=== PATIENT | male | born 1995 | race Caucasian/White ===

== ENCOUNTER → 2020-05-24 11:47 | Outpatient (BNVA) | payer OTHER, SELFPAY | PROVIDERS: Family Provider Family Medicine; Visit Provider Nurse Practitioner Family | DX: Z11.59 Encounter for screening for other viral diseases (principal); J06.9 Acute upper respiratory infection, unspecified | CPT/HCPCS: 87635 ==

== ENCOUNTER 2020-08-05 19:58 | Emergency (ER) | payer OTHER, SELFPAY ==
[2020-08-05 20:14] VITALS: BP 157/135; PULSE 90; RESP 14; TEMP 36.6; O2SAT 97; BMI 39.5
--- NOTE | 2020-08-05 20:49 | ED_ITS ---
HPI - COVID General: Chief Complaint: COVID symptoms Stated Complaint: covid symptoms,cough,nausea,vomiting,sob Time Seen by Provider: 08/05/20 20:10 Triage information: Has fever, cough or shortness of breath . Exposure to COVID + person last 14 days History of Present Illness: HPI Narrative: The patient is a 25-year-old male who comes to the ER complaining of nausea and vomiting for the past day. He says he is unable to keep anything down. He says it started with chills last night and has a sore throat from the vomiting. Denies eating anything bad. Denies diarrhea. He denies coughing to me. No sick contacts. COVID 19 common symptoms: positive chills, fatigue, headache(s), throat pain, nausea and vomiting; negative non-productive cough, productive cough or dyspnea COVID 19 other sytmptoms: negative chest pain COVID Results: SARS-CoV-2 Antigen (Rapid) Negative (Negative) 08/05/20 20:50 08/05/20 SARS-CoV-2 RNA (RT-PCR) Not detected (NOT DETECTED) 05/24/20 11:47 05/24/20 Review of Systems General: Reports: 10 or more systems reviewed and unremarkable except in HPI and below Const: Reports: chills and fatigue Eyes: Denies: change in vision, blurry vision or eye redness ENMT: Reports: throat pain Card: Denies: chest pain, palpitations, irregular heart rhythm, edema, dyspnea on exertion or orthopnea Resp: Denies: dyspnea, productive cough or non-productive cough GI: Reports: nausea and vomiting; Denies: abdominal pain : Denies: flank pain, urinary frequency or urinary urgency Musc: Denies: neck pain, back pain, extremity pain, joint pain, joint redness, limited range of motion or muscle weakness Skin/Breast: Denies: rash, pruritus, erythema, skin pain or skin tenderness Neuro: Reports: headache(s) Psych: Denies: anxiety or depression Endo: Denies: polyuria All/Imm: Denies: urticaria, throat swelling or tongue swelling Physical Exam Const: COMMON NORMALS: no acute distress, average body habitus, patient oriented x3, no limitations, healthy appearing, alert and well nourished GENERAL APPEARANCE: cooperative, comfortable, well kempt and well developed ORIENTATION/CONSCIOUSNESS: Yes awake, Yes oriented to person, Yes oriented to place and Yes oriented to time HENMT: COMMON NORMALS: normocephalic, external ears normal and Normal external nose present HEAD & SCALP: normal to inspection and normocephalic NOSE: Normal external nose present EXTERNAL EAR: Yes external ears normal MOUTH: Normal oral and palatal mucosa present THROAT: posterior oropharynx normal Eye: COMMON NORMALS: Equal, round and reactive pupils present and EOMs intact bilaterally GENERAL EYE: appearance normal, both eyes and all related structu res PUPIL: Yes Equal, round and reactive pupils present Neck/C-Spine: COMMON NORMALS: full ROM, no lymphadenopathy, no meningeal signs and no JVD GENERAL: Yes normal visual inspection Lymph: LYMPHATIC: no lymphadenopathy noted Chest: COMMONS NORMALS: normal inspection of the chest and normal palpation of entire chest wall Resp: COMMON NORMALS: normal respiratory effort, No retractions, No use of accessory muscles, clear to auscultation bilaterally and percussion normal EFFORT & INSPECTION: Yes able to speak in complete sentences AUSCULTATION: clear to auscultation bilaterally PERCUSSION: percussion normal Cardio: COMMON NORMALS: no JVD, regular rate, regular rhythm, S1 normal heart sound present, S2 normal heart sound present and Peripheral pulses 2+ throughout RATE: regular rate RHYTHM: regular rhythm HEART SOUNDS: S1 normal heart sound present and S2 normal heart sound present PERIPHERAL PULSES: Peripheral pulses 2+ throughout GI: COMMON NORMALS: Normal to inspection, nondistended, normoactive bowel sounds present, Soft to palpation, non-tender and no masses INSPECTION: Yes normal to inspection PALPATION: Yes Soft to palpation : COMMON NORMALS: Yes no CVA tenderness BLADDER/KIDNEY EXAM: Yes no CVA tenderness Back/Pelvis: COMMON NORMALS: no CVA tenderness, thoracic and lumbar spine normal to inspection, no thoracic nor lumbar tenderness and thoraco-lumbar ROM normal Extremity: COMMON NORMALS: normal to inspection, full ROM, capillary refill normal, no joint enlargement and no pedal edema GENERAL: Yes normal exam except as noted Neuro: COMMON NORMALS: patient oriented x3, CN's II-XII intact bilaterally, moves all extremities, no focal motor deficits, no sensory deficits noted and gait normal SENSORIUM/ORIENTATION: Yes alert, Yes oriented to person, Yes oriented to place and Yes oriented to time MENINGEAL SIGNS: Yes no meningeal signs Psych: COMMON NORMALS: mental status grossly normal, Normal thought process present, cooperative, normal affect and speech normal APPEARANCE: Yes well kempt ATTITUDE: Yes calm SPEECH: Yes normal speech THOUGHT PROCESS: Normal thought process present Skin: COMMON NORMALS: no rashes or lesions noted GENERAL SKIN EXAM: no rashes or lesions noted Course Vital Signs: Vital signs: Vital Signs Temperature 97.8 F 08/05/20 20:14 Pulse Rate 76 08/06/20 00:10 Respiratory Rate 18 08/06/20 00:10 Blood Pressure 155/92 08/06/20 00:10 Pulse Oximetry 98 08/06/20 00:10 MDM - COVID MDM Narrative: Medical decision making narrative: The patient came to the ER with symptoms of nausea and vomiting. He was given IV fluids, Zofran, which helped his symptoms and he was discharged. CT abdomen pelvis was negative. He has chronic hepatitis C which is why his liver enzymes are elevated. Follow-up with primary care physician in a couple days to monitor improvement and return to the ER with worsening symptoms. Continue to follow-up with GI for the hepatitis as regularly scheduled Lab Data: Labs: Lab Results 08/05/20 08/05/20 08/05/20 Range/Units 20:50 20:50 20:50 WBC 7.9 (4.0-10.0) 10^3/ uL RBC 5.77 H (4.1-5.3) 10^6/u L Hgb 17.0 H (11.7-16.6) g/dL Hct 51.6 (42.0-52.0) % MCV 89.4 (80-94) fL MCH 29.5 (28.0-34.0) pg MCHC 32.9 (30.0-36.0) g/dL RDW 13.6 (12.1-15.1) % Plt Count 273 (130-400) 10^3/c mm MPV 10.1 (7.4-10.4) fL Neut % (Auto) 53.5 % Lymph % (Auto) 39.8 % [place] % (Auto) 4.4 % Eos % (Auto) 1.5 % Baso % (Auto) 0.5 % Neut # (Auto) 4.21 (1.8-7.7) 10^3/u L Lymph # (Auto) 3.1 (0.8-4.8) 10^3/u L [place] # (Auto) 0.4 (0.2-0.9) 10^3/u L Eos # (Auto) 0.1 (0.0-0.8) 10^3/u L Baso # (Auto) 0.0 (0.0-0.1) 10^3/u L Nucleated RBC % (a uto) 0 % Nucleated RBCs # 0.0 /100WBC Sodium Cancelled Potassium Cancelled Chloride Cancelled Carbon Dioxide Cancelled Anion Gap Cancelled BUN Cancelled Creatinine Cancelled GFR Calculation Cancelled Glucose Cancelled Calculated Osmolal ity Cancelled Calcium Cancelled Total Bilirubin Cancelled AST Cancelled ALT Cancelled Alkaline Phosphata se Cancelled Total Protein Cancelled Albumin Cancelled Globulin Cancelled Lipase Cancelled Ethyl Alcohol Cancelled Hepatitis A IgM Ab (Nonreactive) Hep Bs Antigen (Nonreactive) Hep B Core IgM Ab (Nonreactive) Hepatitis C Antibo dy (Nonreactive) SARS-CoV-2 Ag (Rap id) Negative (Negative) 08/05/20 08/05/20 Range/Units 21:22 21:22 WBC (4.0-10.0) 10^3/ uL RBC (4.1-5.3) 10^6/u L Hgb (11.7-16.6) g/dL Hct (42.0-52.0) % MCV (80-94) fL MCH (28.0-34.0) pg MCHC (30.0-36.0) g/dL RDW (12.1-15.1) % Plt Count (130-400) 10^3/c mm MPV (7.4-10.4) fL Neut % (Auto) % Lymph % (Auto) % [place] % (Auto) % Eos % (Auto) % Baso % (Auto) % Neut # (Auto) (1.8-7.7) 10^3/u L Lymph # (Auto) (0.8-4.8) 10^3/u L [place] # (Auto) (0.2-0.9) 10^3/u L Eos # (Auto) (0.0-0.8) 10^3/u L Baso # (Auto) (0.0-0.1) 10^3/u L Nucleated RBC % (a uto) % Nucleated RBCs # /100WBC Sodium 139 Potassium 4.3 Chloride 104 Carbon Dioxide 26 Anion Gap 13.3 BUN 11 Creatinine 0.5 L GFR Calculation 201.0 H Glucose 89 Calculated Osmolal ity 287 Calcium 9.3 Total Bilirubin 0.8 AST 87 H ALT 94 H Alkaline Phosphata se 89 Total Protein 7.4 Albumin 3.8 Globulin 3.6 Lipase 20 Ethyl Alcohol < 10 Hepatitis A IgM Ab Non-reactive (Nonreactive) Hep Bs Antigen Non-reactive (Nonreactive) Hep B Core IgM Ab Non-reactive (Nonreactive) Hepatitis C Antibo dy Reactive H (Nonreactive) SARS-CoV-2 Ag (Rap id) (Negative) COVID Results: SARS-CoV-2 Antigen (Rapid) Negative (Negative) 08/05/20 20:50 08/05/20 SARS-CoV-2 RNA (RT-PCR) Not detected (NOT DETECTED) 05/24/20 11:47 05/24/20 Discharge Plan Discharge Patient Disposition: Home Clinical Impression: Gastritis Qualifiers: Gastritis type: unspecified gastritis Chronicity: acute Gastritis bleeding: without bleeding Qualified Code(s): K29.00 - Acute gastritis without bleeding Condition: Stable Prescriptions: New Zofran 4 mg tablet 4 mg PO Q6H PRN (Reason: nausea and vomiting) Qty: 10 RF: 0 Prevacid 30 mg capsule,delayed release(DR/EC) 30 mg PO DAILY Qty: 30 RF: 0 No Action methadone 40 mg tablet,soluble 60 mg PO DAILY RF: 0 Discharge Orders: Discharge ED (Routine); Ordered 08/05/20 Ordered By: Darryl Billings Referrals: Foster Olson MD [Primary Care Provider] - 1-3 days Discharge Diet: Advance as tolerated and Clear Liquid Discharge Activity: Increase activity as tolerated Patient Instructions: Gastritis (ED) Activity Restrictions/Additional Instructions: Return for vomiting liquids or medications despite treatment, inability to control fever, worsening pain despite treatment, other concerning symptoms. 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
[2020-08-05 20:55] VITALS: O2SAT 97
[2020-08-05] MEDS: ketorolac 30 mg/mL INJ IVP (20:59)
[2020-08-05] MEDS: ondansetron 2 mg/ML SDV 2 mL 4 MG IVP (20:59)
[2020-08-05] MEDS: sodium chloride 0.9% 1,000 ML 999 ML IV (20:59)
[2020-08-05] MEDS: diphenhydrAMINE 50 mg/mL SDV 1mL 25 MG IVP (20:59)
[2020-08-05 21:04] LABS: Basophils % 0.5 %; Eosinophils # 0.1 10^3/uL (0.0-0.8); Eosinophils % 1.5 %; Hematocrit 51.6 % (42.0-52.0); Lymphocytes # 3.1 10^3/uL (0.8-4.8); Lymphocytes % 39.8 %; Mean Corpuscular HGB Conc 32.9 g/dL (30.0-36.0); Mean Corpuscular Hemoglobin 29.5 pg (28.0-34.0); Mean Corpuscular Volume 89.4 fL (80-94); Mean Platelet Volume 10.1 fL (7.4-10.4); Monocytes # 0.4 10^3/uL (0.2-0.9); Monocytes % 4.4 %; Neutrophils # 4.21 10^3/uL (1.8-7.7); Neutrophils % 53.5 %; Nucleated Red Blood Cells % 0 %; Platelet Count 273 10^3/cmm (130-400); Red Blood Count 5.77 10^6/uL (4.1-5.3); Red Cell Distribution Width 13.6 % (12.1-15.1); White Blood Count 7.9 10^3/uL (4.0-10.0)
[2020-08-05 21:23] LABS: SARS Covid-2 Antigen Negative (Negative)
[2020-08-05 21:26] VITALS: BP 150/90; PULSE 80; RESP 18; O2SAT 96
[2020-08-05 22:05] LABS: Alanine Aminotransferase 94 U/L (0-41); Albumin Level 3.8 g/dL (3.5-5.2); Alkaline Phosphatase 89 IU/L (40-130); Blood Urea Nitrogen 11 mg/dL (6-20); Calcium 9.3 mg/dL (8.5-10.5); Carbon Dioxide 26 mmol/L (22-29); Chloride 104 mmol/L (98-107); Globulin 3.6 g/dL (1.3-4.6); Glucose 89 mg/dL (65-115); Lipase 20 U/L (13-60); Osmolality Calculated 287 mOsm/kg (285-295); Sodium 139 mmol/L (136-145); Total Bilirubin 0.8 mg/dL (0.15-1.2); Total Protein 7.4 g/dL (6.6-8.7)
[2020-08-05 22:14] LABS: Alcohol Level < 10 mg/dL (0-10)
[2020-08-05 22:15] LABS: Anion Gap 13.3 (5-19); Aspartate Amino Transferase 87 U/L (0-40)
[2020-08-05 22:16] LABS: Potassium 4.3 mmol/L (3.5-5.1)
[2020-08-05 22:31] VITALS: BP 166/93; PULSE 74; RESP 18; O2SAT 99
--- NOTE | 2020-08-05 22:41 | CTR_ITS ---
PROCEDURE INFORMATION: Exam: CT Abdomen And Pelvis With Contrast Exam date and time: 08/05/2020 10:59 PM Age: 25 years old Clinical indication: Abdominal pain; Generalized; Patient HX: C/O abd pain w n/v; Additional info: Abdominal pain; Elevated lft's, gastroenteritis symptoms. TECHNIQUE: Imaging protocol: Computed tomography of the abdomen and pelvis with intravenous contrast. Radiation optimization: All CT scans at this facility use at least one of these dose optimization techniques: automated exposure control; mA and/or kV adjustment per patient size (includes targeted exams where dose is matched to clinical indication); or iterative reconstruction. Contrast material: OMNI 300; Contrast volume: 95 ml; Contrast route: INTRAVENOUS (IV); COMPARISON: CT abdomen pelvis w con* [id number] 03/12/2018 1:41 AM RADIATION DOSE METRICS: Total DLP (mGy-cm): 1875.21 FINDINGS: Lungs: The lung bases are clear. Liver: There is mild fatty infiltration of the liver. Gallbladder and bile ducts: Gallbladder is upper range of normal in size, transverse diameter about 4 cm. No visible gallstones or other definite gallbladder abnormality by CT. Ultrasound would be more sensitive for detecting gallstones, if clinically needed. No biliary tree dilation. Pancreas: Unremarkable. Spleen: The spleen appears mildly to moderately enlarged with a length of 15-16 cm. No definite/significant focal abnormality or perisplenic fluid. Adrenal glands: Unremarkable. Kidneys and ureters: Suspect a very small intrarenal calculus in the right kidney. No hydronephrosis of either kidney. No visible ureteral calculus. Stomach and bowel: Possibility of slightly thickened mucosa/wall in the distal antrum of the stomach. This is a nonspecific appearance, and may well be transient on CT, but could also represent evidence for gastritis or peptic ulcer disease. Please correlate clinically. There are no CT findings to strongly suggest diverticulitis. Appendix: The appendix is visualized and appears normal. Intraperitoneal space: No free air, ascites, or bowel distention. Vasculature: No evidence for abdominal aortic aneurysm. Lymph nodes: No retroperitoneal adenopathy. Urinary bladder: Unremarkable as visualized. Reproductive: Essentially unremarkable for age. Bones/joints: Mild to moderate disc space narrowing in the lower lumbar spine. Soft tissues: No significant acute finding. CT/CT abdomen pelvis w con* [id number] IMPRESSION: 1. No free air or bowel distention. No evidence for bowel obstruction. 2. Gallbladder is upper normal in size, no visible gallstones by CT. 3. Possible thickened mucosa/wall in the distal stomach, see above discussion. 4. Normal appendix. 5. Splenomegaly, details above. 6. Other findings discussed above. Radiation Dose CTDIVOL = (mGy): DLP = 1875.21 (mGy-cm)
[2020-08-05 22:59] LABS: Hepatitis A Antibody IgM Non-Reactive (Nonreactive); Hepatitis B Core IgM Non-Reactive (Nonreactive); Hepatitis B Surface Antigen Non-Reactive (Nonreactive); Hepatitis C Virus Antibody Reactive (Nonreactive)
--- NOTE | 2020-08-05 23:06 | PC.NURSE ---
pt to CT
[2020-08-05] MEDS: iohexol 300 mg/mL 100 mL Btl IV (23:11)
--- NOTE | 2020-08-05 23:15 | PC.NURSE ---
pt back from CT
[2020-08-06] MEDS: promethazine 25 mg/mL SDV 1 mL IM (00:07)
--- NOTE | 2020-08-06 00:08 | PC.NURSE ---
per ED physician do not give PO compazine
[2020-08-06 00:10] VITALS: BP 155/92; PULSE 76; RESP 18; O2SAT 98
== END 2020-08-06 00:10 | disposition home or self-care (01) ==
PROVIDERS: Emergency Provider Family Medicine; PCP Family Medicine
DX: K29.00 Acute gastritis without bleeding (principal)
CPT/HCPCS: 12345; 36415; 74177; 80053; 80074; 80307; 83690; 85025; 87426; 96361; 96374; 96375; 99283; J1200; J1885; J2405; J2550; J7030; Q9967

== ENCOUNTER 2020-12-05 03:26 | Emergency (ER) | payer SELFPAY ==
--- NOTE | 2020-12-05 03:27 | ECG_ITS ---
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 Measurements Intervals [place] Rate: 65 P: -12 TX: 160 QRS: 40 QRSD: 105 T: 43 QT: 389 QTc: 406 Interpretive Statements SINUS RHYTHM No previous ECG available for comparison Electronically Signed On 12-05-2020 19:22:29 CDT by Em Cabello M.D. [id number]
[2020-12-05 03:33] VITALS: BP 164/118; RESP 17; TEMP 36.7; BMI 39.5
--- NOTE | 2020-12-05 03:44 | XRR_ITS ---
PROCEDURE INFORMATION: Exam: XR Chest Exam date and time: 12/05/2020 3:46 AM Age: 25 years old Clinical indication: Shortness of breath; Left-sided chest pain; Additional info: Cp, left sided radiating to back TECHNIQUE: Imaging protocol: XR of the chest. Views: 1 view. COMPARISON: No relevant prior studies available. FINDINGS: Lungs: Hypoinflation, without acute airspace disease. Pleural spaces: No pleural effusion. Heart/Mediastinum: No cardiomegaly. Bones/joints: Unremarkable. XR/XR chest 1V portable [id number] IMPRESSION: No acute airspace or pleural disease.
--- NOTE | 2020-12-05 03:56 | W.ED.CHESTPA ---
HPI - Chest Pain General: Chief Complaint: Chest Pain Stated Complaint: cp/sob Time Seen by Provider: 12/05/20 03:31 Source: patient Mode of arrival: ambulatory Limitations: no limitations History of Present Illness: HPI narrative: 25-year-old male states that last night 6 PM he started having left-sided chest pain that was sharp in nature. States he is also having some shortness of breath states he is having hard time getting a deep inspiration. States the pain is currently a 7 out of 10. Denies any history of heart problems. Denies any fever or cough. Denies any worsening improving factors. MD complaint: chest pain Associated symptoms: Reports dyspnea; Deny abdominal pain, fever(s), nausea or vomiting Review of Systems Const: Denies: fever(s), chills, body aches or change in appetite Eyes: Denies: blurry vision or eye discomfort ENMT: Denies: throat pain or dental pain Card: Reports: chest pain Resp: Reports: dyspnea GI: Denies: abdominal pain, nausea, vomiting or diarrhea : Denies: dysuria Musc: Denies: neck pain or back pain Skin/Breast: Denies: rash Neuro: Denies: headache(s) Psych: Denies: depression Jude/Lymph: Denies: easy bruising All/Imm: Denies: urticaria Physical Exam Const: COMMON NORMALS: no acute distress, patient oriented x3 and healthy appearing HENMT: COMMON NORMALS: normocephalic and atraumatic HEAD & SCALP: normocephalic and atraumatic Eye: COMMON NORMALS: Equal, round and reactive pupils present and EOMs intact bilaterally PUPIL: Yes Equal, round and reactive pupils present Neck/C-Spine: COMMON NORMALS: full ROM and supple Chest: COMMONS NORMALS: normal inspection of the chest and normal palpation of entire chest wall Resp: COMMON NORMALS: normal respiratory effort, No retractions, No use of accessory muscles and clear to auscultation bilaterally AUSCULTATION: clear to auscultation bilaterally Cardio: COMMON NORMALS: regular rate, regular rhythm and No murmurs present (Cardio) RATE: regular rate RHYTHM: regular rhythm GI: COMMON NORMALS: Normal to inspection, nondistended, normoactive bowel sounds present, Soft to palpation, non-tender and no masses PALPATION: Yes Soft to palpation Extremity: COMMON NORMALS: normal to inspection and full ROM Neuro: COMMON NORMALS: patient oriented x3, moves all extremities and no focal motor deficits Psych: COMMON NORMALS: mental status grossly normal, Normal thought process present and cooperative THOUGHT PROCESS: Normal thought process present Skin: COMMON NORMALS: no rashes or lesions noted and no wounds GENERAL SKIN EXAM: no rashes or lesions noted Course Vital Signs: Vital signs: Vital Signs Temperature 98.1 F 12/05/20 03:33 Respiratory Rate 18 12/05/20 04:07 Blood Pressure 164/118 12/05/20 03:33 MDM - Chest Pain MDM Narrative: Medical decision making narrative: Patient presents here with chest pains atypical in nature. D-dimer is negative and his troponin is negative as well. Is no signs of acute coronary syndrome or aortic dissection. X-ray shows no pneumothorax or pneumonia. He is stable for discharge and is to follow-up his PCP and return if worsening. Lab Data: Labs: Lab Results 12/05/20 12/05/20 12/05/20 Range/Units 04:05 04:05 04:05 WBC 7.6 (4.0-10.0) 10^3/ uL RBC 4.50 (4.1-5.3) 10^6/u L Hgb 13.2 (11.7-16.6) g/dL Hct 39.7 L (42.0-52.0) % MCV 88.2 (80-94) fL MCH 29.3 (28.0-34.0) pg MCHC 33.2 (30.0-36.0) g/dL RDW 13.2 (12.1-15.1) % Plt Count 217 (130-400) 10^3/c mm MPV 9.6 (7.4-10.4) fL Neut % (Auto) 27.2 % Lymph % (Auto) 64.9 % [place] % (Auto) 5.5 % Eos % (Auto) 2.2 % Baso % (Auto) 0.1 % Neut # (Auto) 2.05 (1.8-7.7) 10^3/u L Lymph # (Auto) 4.9 H (0.8-4.8) 10^3/u L [place] # (Auto) 0.4 (0.2-0.9) 10^3/u L Eos # (Auto) 0.2 (0.0-0.8) 10^3/u L Baso # (Auto) 0.0 (0.0-0.1) 10^3/u L Nucleated RBC % (a uto) 0 % Nucleated RBCs # 0.0 /100WBC D-Dimer <= 0.27 (0-0.59) ug/mIFE U Sodium 139 (136-145) mmol/L Potassium 4.2 (3.5-5.1) mmol/L Chloride 102 (98-107) mmol/L Carbon Dioxide 30 H (22-29) mmol/L Anion Gap 11.2 (5-19) BUN 10 (6-20) mg/dL Creatinine 0.6 L (0.7-1.2) mg/dL GFR Calculation 162.9 H (90-130) mL/min Glucose 95 (65-115) mg/dL Calculated Osmolal ity 287 (285-295) mOsm/k g Calcium 9.4 (8.5-10.5) mg/dL Total Bilirubin 0.7 (0.15-1.2) mg/dL AST 73 H (0-40) U/L ALT 119 H (0-41) U/L Alkaline Phosphata se 84 (40-130) IU/L Troponin T Baselin e (0-15) ng/L Total Protein 7.0 (6.6-8.7) g/dL Albumin 4.0 (3.5-5.2) g/dL Globulin 3.0 (1.3-4.6) g/dL Lipase 21 (13-60) U/L 12/05/20 Range/Units 04:05 WBC (4.0-10.0) 10^3/ uL RBC (4.1-5.3) 10^6/u L Hgb (11.7-16.6) g/dL Hct (42.0-52.0) % MCV (80-94) fL MCH (28.0-34.0) pg MCHC (30.0-36.0) g/dL RDW (12.1-15.1) % Plt Count (130-400) 10^3/c mm MPV (7.4-10.4) fL Neut % (Auto) % Lymph % (Auto) % [place] % (Auto) % Eos % (Auto) % Baso % (Auto) % Neut # (Auto) (1.8-7.7) 10^3/u L Lymph # (Auto) (0.8-4.8) 10^3/u L [place] # (Auto) (0.2-0.9) 10^3/u L Eos # (Auto) (0.0-0.8) 10^3/u L Baso # (Auto) (0.0-0.1) 10^3/u L Nucleated RBC % (a uto) % Nucleated RBCs # /100WBC D-Dimer (0-0.59) ug/mIFE U Sodium (136-145) mmol/L Potassium (3.5-5.1) mmol/L Chloride (98-107) mmol/L Carbon Dioxide (22-29) mmol/L Anion Gap (5-19) BUN (6-20) mg/dL Creatinine (0.7-1.2) mg/dL GFR Calculation (90-130) mL/min Glucose (65-115) mg/dL Calculated Osmolal ity (285-295) mOsm/k g Calcium (8.5-10.5) mg/dL Total Bilirubin (0.15-1.2) mg/dL AST (0-40) U/L ALT (0-41) U/L Alkaline Phosphata se (40-130) IU/L Troponin T Baselin e 8 (0-15) ng/L Total Protein (6.6-8.7) g/dL Albumin (3.5-5.2) g/dL Globulin (1.3-4.6) g/dL Lipase (13-60) U/L Imaging Data^: CXR: Attestation: I personally reviewed and interpreted this imaging study as follows: My impression: No acute abnormality EKG Data^: EKG 1: Attestation: I personally reviewed and interpreted this EKG as follows: EKG interpretation date: 12/05/20 EKG interpretation time: 03:35 Interpretation: nsr hr [address] or t wave abnormalities qrs 105 qtc 401 Discharge Plan Discharge Patient Disposition: Home Clinical Impression: Chest pain Qualifiers: Chest pain type: unspecified Qualified Code(s): R07.9 - Chest pain, unspecified Condition: Stable Prescriptions: New Naprosyn 500 mg tablet 500 mg PO BID PRN (Reason: pain) Qty: 20 RF: 0 No Action methadone 40 mg tablet,soluble 60 mg PO DAILY RF: 0 Zofran 4 mg tablet 4 mg PO Q6H PRN (Reason: nausea and vomiting) Qty: 10 RF: 0 Prevacid 30 mg capsule,delayed release(DR/EC) 30 mg PO DAILY Qty: 30 RF: 0 Discharge Orders: Discharge ED (Routine); Ordered 12/05/20 Ordered By: Eva Du Referrals: Foster Olson MD [Primary Care Provider] - 1-3 days Discharge Diet: Advance as tolerated Discharge Activity: Resume usual activity Patient Instructions: Chest Pain (ED) Coding Level of Care Code ED Director [employer] for [employer] Fwd Exam Comprehensive
[2020-12-05 04:07] VITALS: RESP 18
[2020-12-05] MEDS: ondansetron 2 mg/ML SDV 2 mL 4 MG IVP (04:07)
[2020-12-05] MEDS: HYDROmorphone 1 mg/mL INJ 1 mL IVP (04:07)
[2020-12-05 04:30] VITALS: PULSE 92
[2020-12-05 04:37] LABS: D Dimer <= 0.27 ug/mIFEU (0-0.59)
[2020-12-05 04:39] LABS: Basophils % 0.1 %; Eosinophils # 0.2 10^3/uL (0.0-0.8); Eosinophils % 2.2 %; Hematocrit 39.7 % (42.0-52.0); Hemoglobin 13.2 g/dL (11.7-16.6); Lymphocytes # 4.9 10^3/uL (0.8-4.8); Lymphocytes % 64.9 %; Mean Corpuscular HGB Conc 33.2 g/dL (30.0-36.0); Mean Corpuscular Hemoglobin 29.3 pg (28.0-34.0); Mean Corpuscular Volume 88.2 fL (80-94); Mean Platelet Volume 9.6 fL (7.4-10.4); Monocytes # 0.4 10^3/uL (0.2-0.9); Monocytes % 5.5 %; Neutrophils # 2.05 10^3/uL (1.8-7.7); Neutrophils % 27.2 %; Nucleated Red Blood Cells % 0 %; Platelet Count 217 10^3/cmm (130-400); Red Cell Distribution Width 13.2 % (12.1-15.1); White Blood Count 7.6 10^3/uL (4.0-10.0)
[2020-12-05 04:44] LABS: Troponin(5th) Baseline 8 ng/L (0-15)
[2020-12-05 04:48] LABS: Alanine Aminotransferase 119 U/L (0-41); Alkaline Phosphatase 84 IU/L (40-130); Anion Gap 11.2 (5-19); Aspartate Amino Transferase 73 U/L (0-40); Blood Urea Nitrogen 10 mg/dL (6-20); Calcium 9.4 mg/dL (8.5-10.5); Carbon Dioxide 30 mmol/L (22-29); Chloride 102 mmol/L (98-107); Glomerular Filtration Rate 162.9 mL/min (90-130); Glucose 95 mg/dL (65-115); Lipase 21 U/L (13-60); Osmolality Calculated 287 mOsm/kg (285-295); Potassium 4.2 mmol/L (3.5-5.1); Sodium 139 mmol/L (136-145); Total Bilirubin 0.7 mg/dL (0.15-1.2)
[2020-12-05 05:01] LABS: Slide Review Slide Review Perform
[2020-12-05] MEDS: diphenhydrAMINE 50 mg/mL SDV 1mL IVP (05:30)
[2020-12-05 05:40] VITALS: BP 150/74; PULSE 88; RESP 16; O2SAT 98
== END 2020-12-05 05:30 | disposition home or self-care (01) ==
PROVIDERS: Emergency Provider Emergency Medicine; PCP Family Medicine
DX: R07.9 Chest pain, unspecified (principal)
CPT/HCPCS: 71045; 80053; 83690; 84484; 85025; 85378; 93005; 96374; 96375; 99283; J1170; J1200; J2405

== ENCOUNTER → 2021-07-16 12:17 | Outpatient (BNVA) | payer OTHER, SELFPAY | PROVIDERS: PCP Family Medicine; Visit Provider Nurse Practitioner | DX: Z20.822 Contact with and (suspected) exposure to COVID-19 (principal) | CPT/HCPCS: 87635 ==

== ENCOUNTER 2021-09-17 16:02 | Emergency (ER) | payer MEDICAID, SELFPAY ==
[2021-09-17 16:05] VITALS: BP 154/94; PULSE 80; RESP 18; TEMP 36.6; O2SAT 99; BMI 31.4
[2021-09-17 16:18] VITALS: BP 150/101; PULSE 81; RESP 18; O2SAT 99
--- NOTE | 2021-09-17 16:37 | PC.PHAR ---
pt states he is taking methadone 80mg daily-called [facility] [phone] they are closed no way to verify
--- NOTE | 2021-09-17 16:38 | ED_ITS ---
HPI - General Adult General: Chief complaint: General Medical Stated complaint: WITHDRAWL Time Seen by Provider: 09/17/21 16:19 History of Present Illness: 26-year-old male presents emergency room in police custody chief complaint is withdrawal. He evidently has been using methamphet amines in addition to that he is on methadone. He normally is taking 80 mg daily. Last time he took any was yesterday starting to get fidgety nauseous and uncomfortable. Blood pressure is elevated a bit. He evidently had some medications but they were labeled improperly out of date and please were unable to give them to him while he is in custody. Usually sees a local methadone clinic. He has some other medications at home but evidently these are not in the appropriate containers according to him and he is not sure he can get someone to bring them in for him. Onset (ago): hour(s) Relieving factors: none Exacerbating factors: none Associated symptoms: Reports diaphoresis, decreased appetite and headache(s); Deny chest pain, confusion, cough, dyspnea, fevers/chills, malaise, nausea, rash, palpitations, seizures, short of breath, syncope, vomiting or weakness Treatments prior to arrival: none Review of Systems Const: Reports: diaphoresis; Denies: malaise ENMT: Denies: throat pain, ear or mastoid pain, nasal discharge or nasal conge stion Card: Denies: chest pain, palpitations or syncope Resp: Denies: dyspnea GI: Denies: nausea or vomiting : Denies: flank pain, dysuria, urinary frequency or urinary urgency Skin/Breast: Denies: rash Neuro: Reports: headache(s); Denies: confusion [facility] ED PFSH: Medical History Groin abscess Leg fracture, left Migraine Surgical History Status post thoracostomy tube placement Social History Smoking and tobacco status: current every day smoker Alcohol intake: current Substance/Drug Use: current Substance/Drug use type: Methamphetamine Physical Exam Const: GENERAL APPEARANCE: cooperative and comfortable ORIENTATION/CONSCIOUSNESS: Yes awake, Yes oriented to person, Yes oriented to place and Yes oriented to time HENMT: COMMON NORMALS: normocephalic, atraumatic and hearing grossly normal bilaterally HEAD & SCALP: normocephalic and atraumatic Neck/C-Spine: COMMON NORMALS: no JVD Resp: COMMON NORMALS: normal respiratory effort, No retractions, No use of accessory muscles and clear to auscultation bilaterally AUSCULTATION: clear to auscultation bilaterally Cardio: COMMON NORMALS: no JVD, regular rate, regular rhythm and No murmurs present (Cardio) RATE: regular rate RHYTHM: regular rhythm GI: COMMON NORMALS: Soft to palpation and No hepatosplenomegaly present AUSCULTATION: Yes normoactive bowel sounds PALPATION: Yes Soft to palpation, No Tenderness to palpation present (GI), No Guarding due to palpation present (GI) and Yes No hepatosplenomegaly present Extremity: COMMON NORMALS: normal to inspection, capillary refill normal, no clubbing, cyanosis or edema, no calf tenderness and no pedal edema Neuro: SENSORIUM/ORIENTATION: Yes oriented to person, Yes oriented to place a nd Yes oriented to time Skin: COMMON NORMALS: no rashes or lesions noted GENERAL SKIN EXAM: no rashes or lesions noted Course Vital Signs: Vital signs: Vital Signs Temperature 97.9 F 09/17/21 16:05 Pulse Rate 72 09/17/21 18:34 Respiratory Rate 17 09/17/21 18:34 Blood Pressure 153/86 09/17/21 18:34 Pulse Oximetry 98 09/17/21 18:34 MDM - General Adult Medical Decision Making Discussed with the patient his methadone dose. He states he takes 80 mg daily. He goes to a local methadone clinic. Unfortunately when he was taken to custody the methadone he had with him was not properly labeled was out of date on the bottle. 1 4 splint present with patient tells me he can be transferred to [facility] custody tomorrow. There is a potential form to brody out tomorrow. Unfortunately the patient states he does not have any methadone at home that is improperly labeled and dated containers from the pharmacy. Officers with me tell me if the family or friend can bring medication that is in a pharmacy dispense container they can administer to him but unfortunately patient says its not going to be possible. For now we will discharge him home with clonidine and Ativan. Discussed with the officer given the dose of methadone I suspect he will have pretty significant withdrawal issues. They should try to contact the prescribing physician tomorrow. Advised them I also suspect he will have an adenopathy comfortably will be likely will need to return to the emergency room to be reevaluated if he begins having more withdrawal. Officer and patient expressed understanding patient hopes to find out tomorrow so he can begin restarting his medication. He can return if he has further problems. He is comfortable and doing well at this time with the clonidine and Ativan he has been given. Lab Data : 09/17/21 16:45 09/17/21 16:45 Laboratory Results WBC 7.6 10^3/uL (4.0-10.0) 09/17/21 16:45 RBC 5.37 10^6/uL (4.1-5.3) H 09/17/21 16:45 Hgb 15.4 g/dL (11.7-16.6) 09/17/21 16:45 Hct 46.6 % (42.0-52.0) 09/17/21 16:45 MCV 86.8 fl (80-94) 09/17/21 16:45 MCH 28.7 pg (28.0-34.0) 09/17/21 16:45 MCHC 33.0 g/dL (30.0-36.0) 09/17/21 16:45 RDW 13.1 % (12.1-15.1) 09/17/21 16:45 Plt Count 224 10^3/cmm (130-400) 09/17/21 16:45 MPV 9.7 fL (7.4-10.4) 09/17/21 16:45 Neut % (Auto) 61.6 % 09/17/21 16:45 Lymph % (Auto) 34.7 % 09/17/21 16:45 [place] % (Auto) 2.9 % 09/17/21 16:45 Eos % (Auto) 0.4 % 09/17/21 16:45 Baso % (Auto) 0.1 % 09/17/21 16:45 Neut # (Auto) 4.68 10^3/uL (1.8-7.7) 09/17/21 16:45 Lymph # (Auto) 2.6 10^3/uL (0.8-4.8) 09/17/21 16:45 [place] # (Auto) 0.2 10^3/uL (0.2-0.9) 09/17/21 16:45 Eos # (Auto) 0.0 10^3/uL (0.0-0.8) 09/17/21 16:45 Baso # (Auto) 0.0 10^3/uL (0.0-0.1) 09/17/21 16:45 Nucleated RBC % (auto) 0 % 09/17/21 16:45 Nucleated RBCs # 0.0 /100WBC 09/17/21 16:45 Sodium 136 mmol/L (136-145) 09/17/21 16:45 Potassium 4.4 mmol/L (3.5-5.1) 09/17/21 16:45 Chloride 101 mmol/L (98-107) 09/17/21 16:45 Carbon Dioxide 27 mmol/L (22-29) 09/17/21 16:45 Anion Gap 12.4 (5-19) 09/17/21 16:45 BUN 12 mg/dL (6-20) 09/17/21 16:45 Creatinine 0.4 mg/dL (0.7-1.2) L 09/17/21 16:45 GFR Calculation 258.0 mL/min (90-130) H 09/17/21 16:45 Glucose 95 mg/dL (65-115) 09/17/21 16:45 Calculated Osmolality 282 mOsm/kg (285-295) L 09/17/21 16:45 Calcium 9.8 mg/dL (8.5-10.5) 09/17/21 16:45 Total Bilirubin 0.6 mg/dL (0.15-1.2) 09/17/21 16:45 AST 76 U/L (0-40) H 09/17/21 16:45 ALT 92 U/L (0-41) H 09/17/21 16:45 Alkaline Phosphatase 99 IU/L (40-130) 09/17/21 16:45 Creatine Kinase 380 U/L (39-308) H* 09/17/21 16:45 Total Protein 8.3 g/dL (6.6-8.7) 09/17/21 16:45 Albumin 4.3 g/dL (3.5-5.2) 09/17/21 16:45 Globulin 4.0 g/dL (1.3-4.6) 09/17/21 16:45 Discharge Plan Discharge Patient Disposition: Home Clinical Impression: Methadone dependence Prescriptions: New clonidine HCl 0.1 mg tablet 0.1 mg PO Q8H Qty: 30 0RF promethazine 25 mg tablet 25 mg PO Q6H PRN (Reason: nausea and vomiting) Qty: 20 0RF Ativan 2 mg tablet 2 mg PO TID Qty: 30 0RF No Action methadone 40 mg tablet,soluble 80 mg PO DAILY 0RF Discharge Orders: Discharge ED (Routine); Ordered 09/17/21 Ordered By: Hugh Rawls Referrals: Foster Olson MD [Primary Care Provider] - Patient Instructions: Opioid Safety Coding Level of Care Code ED Cut Filer for Margueriteg Fwd Exam Comprehensive
[2021-09-17 16:54] VITALS: BP 142/86
[2021-09-17 16:54] LABS: Basophils % 0.1 %; Eosinophils % 0.4 %; Hematocrit 46.6 % (42.0-52.0); Hemoglobin 15.4 g/dL (11.7-16.6); Lymphocytes # 2.6 10^3/uL (0.8-4.8); Lymphocytes % 34.7 %; Mean Corpuscular Hemoglobin 28.7 pg (28.0-34.0); Mean Corpuscular Volume 86.8 fl (80-94); Mean Platelet Volume 9.7 fL (7.4-10.4); Monocytes # 0.2 10^3/uL (0.2-0.9); Monocytes % 2.9 %; Neutrophils # 4.68 10^3/uL (1.8-7.7); Neutrophils % 61.6 %; Nucleated Red Blood Cells % 0 %; Platelet Count 224 10^3/cmm (130-400); Red Blood Count 5.37 10^6/uL (4.1-5.3); Red Cell Distribution Width 13.1 % (12.1-15.1); White Blood Count 7.6 10^3/uL (4.0-10.0)
[2021-09-17] MEDS: cloNIDine 0.1 mg Tablet PO (16:54)
[2021-09-17] MEDS: LORazepam 2 mg/mL INJ 1 mL IVP (16:54)
[2021-09-17] MEDS: lactated ringers 1,000 ML 999 ML IV ×2 (16:57→17:59)
[2021-09-17 17:39] LABS: Alanine Aminotransferase 92 U/L (0-41); Albumin Level 4.3 g/dL (3.5-5.2); Alkaline Phosphatase 99 IU/L (40-130); Anion Gap 12.4 (5-19); Aspartate Amino Transferase 76 U/L (0-40); Blood Urea Nitrogen 12 mg/dL (6-20); Calcium 9.8 mg/dL (8.5-10.5); Carbon Dioxide 27 mmol/L (22-29); Chloride 101 mmol/L (98-107); Glucose 95 mg/dL (65-115); Osmolality Calculated 282 mOsm/kg (285-295); Potassium 4.4 mmol/L (3.5-5.1); Sodium 136 mmol/L (136-145); Total Bilirubin 0.6 mg/dL (0.15-1.2); Total Protein 8.3 g/dL (6.6-8.7)
[2021-09-17 17:42] LABS: Creatine Phosphokinase 380 U/L (39-308)
[2021-09-17 18:34] VITALS: BP 153/86; PULSE 72; RESP 17; O2SAT 98
== END 2021-09-17 18:35 | disposition home or self-care (01) ==
PROVIDERS: Emergency Provider Family Medicine; PCP Family Medicine
DX: F11.20 Opioid dependence, uncomplicated (principal); F17.210 Nicotine dependence, cigarettes, uncomplicated
CPT/HCPCS: 80053; 82550; 85025; 96361; 96374; 99284; J2060

== ENCOUNTER 2021-09-18 16:11 | Emergency (ER) | payer MEDICAID, SELFPAY ==
[2021-09-18 16:12] VITALS: BP 178/105; PULSE 78; RESP 20; TEMP 36.4; O2SAT 100; BMI 30.8
--- NOTE | 2021-09-18 16:30 | W.ED.ABDPA2 ---
HPI - Abdominal Pain General: Chief Complaint: Abdominal Pain Stated Complaint: Pain in side cant breath Time Seen by Provider: 09/18/21 16:24 Source: patient Mode of arrival: ambulatory History of Present Illness: 26-year-old male presents emergency room complaining of severe abdominal pain and cramping. Patient was seen yesterday he was in custody of local police at that time. He is normally been on methadone taking 80 mg daily they would not give him his methadone because the package it was in was out of date and otherwise not appropriately labeled. We had encouraged him to get a family member to bring his properly labeled prescription and so they could give it to him which to the officer said to be willing to do with the patient admitted he did not have any prescription that was properly labeled. He did make mail this morning evidently he never took any of the Ativan or clonidine we prescribed yesterday he took 1 dose of his methadone but he is still having severe nausea vomiting and abdominal cramping. No hematochezia or melena. No cough. Emesis or hematemesis. MD elicited complaint: abdominal pain Pertinent past history: other (Methadone dependence) Onset (ago): hour(s) Pain Consistency: constant Location: Diffuse Severity: severe Quality: cramping Radiation: none Exacerbating factors: nothing Relieving factors: nothing Associated Symptoms: Reports bloating, GI cramping, nausea, poor appetite and vomiting; Denies anorexia, belching, change in bowel habits, change in stool character, chills, coffee ground emesis, constipation, diarrhea, dyspepsia, dysuria, excessive flatus, fever(s), heartburn, hematochezia, hematuria, hematemesis, fecal incontinence, loose stools, melena and syncope Review of Systems Const: Denies: fever(s) or chills ENMT: Denies: throat pain, ear or mastoid pain, nasal discharge or nasal congestion Card: Denies: syncope Resp: Denies: dyspnea, productive cough or non-productive cough GI: Reports: nausea, vomiting, bloating and GI cramping; Denies: hematemesis, coffee ground emesis, heartburn, diarrhea, constipation, belching, excessive flatus, fecal incontinence, change in bowel habits, change in stool character, hematochezia or melena : Denies: dysuria or hematuria Skin/Breast: Denies: rash or pruritus PFSH ED PFSH: Medical History Groin abscess Leg fracture, left Migraine Surgical History Status post thoracostomy tube placement Social History Smoking and tobacco status: current every day smoker Alcohol intake: current Physical Exam Const: GENERAL APPEARANCE: cooperative and comfortable ORIENTATION/CONSCIOUSNESS: Yes awake, Yes oriented to person, Yes oriented to place and Yes oriented to time HENMT: COMMON NORMALS: normocephalic, atraumatic and hearing grossly normal bilaterally HEAD & SCALP: normocephalic and atraumatic Neck/C-Spine: COMMON NORMALS: no JVD Resp: COMMON NORMALS: normal respiratory effort, No retractions, No use of accessory muscles and clear to auscultation bilaterally AUSCULTATION: clear to auscultation bilaterally Cardio: COMMON NORMALS: no JVD, regular rate, regular rhythm and No murmurs present (Cardio) RATE: regular rate RHYTHM: regular rhythm GI: COMMON NORMALS: No hepatosplenomegaly present AUSCULTATION: Yes normoactive bowel sounds PALPATION: Yes Tenderness to palpation present (GI) (Diffuse), No Guarding due to palpation present (GI) and Yes No hepatosplenomegaly present Extremity: COMMON NORMALS: normal to inspection, capillary refill normal, no clubbing, cyanosis or edema, no calf tenderness and no pedal edema Neuro: SENSORIUM/ORIENTATION: Yes oriented to person, Yes oriented to place and Yes oriented to time Skin: COMMON NORMALS: no rashes or lesions noted GENERAL SKIN EXAM: no rashes or lesions noted Course Vital Signs: Vital signs: Vital Signs Temperature 97.5 F L 09/18/21 16:12 Pulse Rate 71 09/18/21 17:32 Respiratory Rate 20 H 09/18/21 16:12 Blood Pressure 143/95 09/18/21 17:32 Pulse Oximetry 100 09/18/21 17:32 MDM - Abdominal Pain Medical Decision Making Improved after antiemetics and fluids feeling much better will discharge home. Recommend he use the clonidine and Ativan previously prescribed to continue his regular doses of methadone. He can discontinue the clonidine Ativan within the next 1 to 2 days most likely follow-up with his methadone clinic return if has problems Medical Records I reviewed the patient's medical records. Lab Data I reviewed the patient's lab results. : 09/18/21 16:18 09/18/21 16:18 Labs/Radiology: Laboratory Results WBC 7.1 10^3/uL (4.0-10.0) 09/18/21 16:18 RBC 4.98 10^6/uL (4.1-5.3) 09/18/21 16:18 Hgb 14.4 g/dL (11.7-16.6) 09/18/21 16:18 Hct 42.5 % (42.0-52.0) 09/18/21 16:18 MCV 85.3 fl (80-94) 09/18/21 16:18 MCH 28.9 pg (28.0-34.0) 09/18/21 16:18 MCHC 33.9 g/dL (30.0-36.0) 09/18/21 16:18 RDW 13.0 % (12.1-15.1) 09/18/21 16:18 Plt Count 195 10^3/cmm (130-400) 09/18/21 16:18 MPV 9.9 fL (7.4-10.4) 09/18/21 16:18 Neut % (Auto) 31.4 % 09/18/21 16:18 Lymph % (Auto) 61.9 % 09/18/21 16:18 [place] % (Auto) 5.0 % 09/18/21 16:18 Eos % (Auto) 1.5 % 09/18/21 16:18 Baso % (Auto) 0.1 % 09/18/21 16:18 Neut # (Auto) 2.23 10^3/uL (1.8-7.7) 09/18/21 16:18 Lymph # (Auto) 4.4 10^3/uL (0.8-4.8) 09/18/21 16:18 [place] # (Auto) 0.4 10^3/uL (0.2-0.9) 09/18/21 16:18 Eos # (Auto) 0.1 10^3/uL (0.0-0.8) 09/18/21 16:18 Baso # (Auto) 0.0 10^3/uL (0.0-0.1) 09/18/21 16:18 Nucleated RBC % (auto) 0 % 09/18/21 16:18 Nucleated RBCs # 0.0 /100WBC 09/18/21 16:18 Sodium 142 mmol/L (136-145) 09/18/21 16:18 Potassium 4.2 mmol/L (3.5-5.1) 09/18/21 16:18 Chloride 105 mmol/L (98-107) 09/18/21 16:18 Carbon Dioxide 28 mmol/L (22-29) 09/18/21 16:18 Anion Gap 13.2 (5-19) 09/18/21 16:18 BUN 12 mg/dL (6-20) 09/18/21 16:18 Creatinine 0.6 mg/dL (0.7-1.2) L 09/18/21 16:18 GFR Calculation 161.6 mL/min (90-130) H 09/18/21 16:18 Glucose 111 mg/dL (65-115) 09/18/21 16:18 Calculated Osmolality 294 mOsm/kg (285-295) 09/18/21 16:18 Calcium 9.7 mg/dL (8.5-10.5) 09/18/21 16:18 Total Bilirubin 0.4 mg/dL (0.15-1.2) 09/18/21 16:18 AST 72 U/L (0-40) H 09/18/21 16:18 ALT 85 U/L (0-41) H 09/18/21 16:18 Alkaline Phosphatase 93 IU/L (40-130) 09/18/21 16:18 Total Protein 7.1 g/dL (6.6-8.7) 09/18/21 16:18 Albumin 4.4 g/dL (3.5-5.2) 09/18/21 16:18 Globulin 2.7 g/dL (1.3-4.6) 09/18/21 16:18 Lipase 19 U/L (13-60) 09/18/21 16:18 Urine Color Yellow (Yellow) 09/18/21 17:08 Urine Appearance Clear (CLEAR) 09/18/21 17:08 Urine pH 5 (5-7) 09/18/21 17:08 Ur Specific [place] 1.020 (1.005-1.030) 09/18/21 17:08 Urine Protein Neg (Negative) 09/18/21 17:08 Urine Glucose (UA) Norm (Normal) 09/18/21 17:08 Urine Ketones Negative (Negative) 09/18/21 17:08 Urine Blood 3+ (Negative) H 09/18/21 17:08 Urine Nitrate Negative (Negative) 09/18/21 17:08 Urine Bilirubin 1+ (Negative) H 09/18/21 17:08 Urine Urobilinogen 4 mg/dL (Negative) H 09/18/21 17:08 Ur Leukocyte Esterase Negative (Negative) 09/18/21 17:08 Urine RBC 50-80 /hpf (0-2) H 09/18/21 17:08 Urine WBC None /hpf (0-5) 09/18/21 17:08 Ur Squamous Epith Cells 0-4 /hpf (0-5) H 09/18/21 17:08 Amorphous Sediment Not Reportable 09/18/21 17:08 Urine Bacteria Trace /hpf (NONE) 09/18/21 17:08 Urine Sperm 1+ /hpf 09/18/21 17:08 Discharge Plan Discharge Patient Disposition: Home Clinical Impression: Methadone dependence, Nausea & vomiting Condition: Stable Prescriptions: No Action methadone 40 mg tablet,soluble 80 mg PO DAILY 0RF clonidine HCl 0.1 mg tablet 0.1 mg PO Q8H Qty: 30 0RF promethazine 25 mg tablet 25 mg PO Q6H PRN (Reason: nausea and vomiting) Qty: 20 0RF Ativan 2 mg tablet 2 mg PO TID Qty: 30 0RF Discharge Orders: Discharge ED (Routine); Ordered 09/18/21 Ordered By: Hugh Rawls Referrals: Foster Olson MD [Primary Care Provider] - Discharge Diet: Full LIquid Discharge Activity: Increase activity as tolerated Patient Instructions: Opioid Safety Activity Restrictions/Additional Instructions: Use Ativan clonidine and Phenergan as needed. Continue to take your scheduled methadone follow-up with your doctor within the next 24 hours. Coding Level of Care Code ED Furnace Cooler for Chg Fwd Exam Comprehensive
[2021-09-18] MEDS: ondansetron 2 mg/ML SDV 2 mL 4 MG IVP (16:34)
[2021-09-18] MEDS: lactated ringers 1,000 ML 999 ML IV (16:34)
[2021-09-18 16:38] LABS: Basophils % 0.1 %; Eosinophils # 0.1 10^3/uL (0.0-0.8); Eosinophils % 1.5 %; Hematocrit 42.5 % (42.0-52.0); Hemoglobin 14.4 g/dL (11.7-16.6); Lymphocytes # 4.4 10^3/uL (0.8-4.8); Lymphocytes % 61.9 %; Mean Corpuscular HGB Conc 33.9 g/dL (30.0-36.0); Mean Corpuscular Hemoglobin 28.9 pg (28.0-34.0); Mean Corpuscular Volume 85.3 fl (80-94); Mean Platelet Volume 9.9 fL (7.4-10.4); Monocytes # 0.4 10^3/uL (0.2-0.9); Neutrophils # 2.23 10^3/uL (1.8-7.7); Neutrophils % 31.4 %; Nucleated Red Blood Cells % 0 %; Platelet Count 195 10^3/cmm (130-400); Red Blood Count 4.98 10^6/uL (4.1-5.3); White Blood Count 7.1 10^3/uL (4.0-10.0)
[2021-09-18 16:44] VITALS: BP 177/116
[2021-09-18] MEDS: cloNIDine 0.1 mg Tablet PO (16:44)
[2021-09-18 17:02] LABS: Alanine Aminotransferase 85 U/L (0-41); Albumin Level 4.4 g/dL (3.5-5.2); Alkaline Phosphatase 93 IU/L (40-130); Aspartate Amino Transferase 72 U/L (0-40); Blood Urea Nitrogen 12 mg/dL (6-20); Calcium 9.7 mg/dL (8.5-10.5); Carbon Dioxide 28 mmol/L (22-29); Chloride 105 mmol/L (98-107); Globulin 2.7 g/dL (1.3-4.6); Glomerular Filtration Rate 161.6 mL/min (90-130); Glucose 111 mg/dL (65-115); Osmolality Calculated 294 mOsm/kg (285-295); Sodium 142 mmol/L (136-145); Total Bilirubin 0.4 mg/dL (0.15-1.2); Total Protein 7.1 g/dL (6.6-8.7)
[2021-09-18 17:04] LABS: Anion Gap 13.2 (5-19); Potassium 4.2 mmol/L (3.5-5.1)
[2021-09-18 17:18] LABS: Lipase 19 U/L (13-60)
[2021-09-18 17:22] VITALS: BP 143/91; PULSE 71; O2SAT 100
[2021-09-18 17:32] VITALS: BP 143/95; PULSE 71; O2SAT 100
[2021-09-18 17:37] LABS: Add Urine Microscopic? YES; Bilirubin Urine 1+ (Negative); Blood Urine 3+ (Negative); Glucose Urine UA Norm (Normal); Ketones Urine Negative (Negative); Leukocyte Esterase Urine Negative (Negative); Nitrate Urine Negative (Negative); Protein Urine Neg (Negative); RBC Urine 50-80 /hpf (0-2); Squamous Epithelial Cell Urine 0-4 /hpf (0-5); Urine Appearance Clear (CLEAR); Urine Color Yellow (Yellow); Urobilinogen Urine 4 mg/dL (Negative); pH Urine 5 (5-7)
[2021-09-18 17:38] LABS: Add Urine Culture? Yes; Bacteria Urine TRACE /hpf; Sperm Urine 1+ /hpf
== END 2021-09-18 17:34 | disposition home or self-care (01) ==
PROVIDERS: Emergency Provider Family Medicine; PCP Family Medicine
DX: R11.2 Nausea with vomiting, unspecified (principal); F11.20 Opioid dependence, uncomplicated; F17.210 Nicotine dependence, cigarettes, uncomplicated
CPT/HCPCS: 80053; 81001; 83690; 85025; 87086; 96361; 96374; 96375; 99284; J2405

== ENCOUNTER 2021-12-26 00:23 | Emergency (ER) | payer MEDICAID, SELFPAY ==
[2021-12-26 00:27] VITALS: BP 161/102; PULSE 90; RESP 18; TEMP 36.2; O2SAT 100; BMI 29.0
--- NOTE | 2021-12-26 00:32 | W.ED.EXTPRO ---
HPI - Extremity Problem General: Chief complaint: Extremity Problem,Nontraumatic Stated complaint: Legs swollen Time Seen by Provider: 12/26/21 00:30 History of Present Illness: 26-year-old male patient comes in today for complaints of increased swelling in his lower extremities for last 2 weeks. Patient has a substance abuse history. Patient is involved in the methadone clinic. Patient takes no other routine medications at this time. Patient does have a history of hepatitis C and was going to get treatment before the pandemic hit but once the pandemic hit he was not able to continue the plan for treatment. Patient does admit to using methamphetamines. Patient reports no fever or nausea or vomiting. Patient did stepped on a nail 2 days ago and does not remember his last tetanus shot. Associated symptoms: Deny chest pain or fever(s) Review of Systems General: Reports: 10 or more systems reviewed and unremarkable except in HPI and below Const: Denies: fever(s) Card: Denies: chest pain Resp: Denies: dyspnea GI: Denies: nausea or vomiting : Denies: difficulty urinating Musc: Reports: extremity pain (Bilateral lower extremity swelling and pain) Skin/Breast: Reports: new lesions (Puncture wound left foot) [facility] ED PFSH: Medical History Groin abscess Leg fracture, left Migraine Surgical History Status post thoracostomy tube placement Social History Smoking and tobacco status: current every day smoker Alcohol intake: current Physical Exam Const: COMMON NORMALS: alert HENMT: COMMON NORMALS: normocephalic HEAD & SCALP: normocephalic Eye: COMMON NORMALS: Equal, round and reactive pupils present and EOMs intact bilaterally PUPIL: Yes Equal, round and reactive pupils present Neck/C-Spine: COMMON NORMALS: full ROM Chest: COMMONS NORMALS: normal inspection of the chest and normal palpation of the breasts BREAST/AXILLA PALPATION: Yes normal palpation of the breasts Resp: COMMON NORMALS: normal respiratory effort and clear to auscultation bilaterally AUSCULTATION: clear to auscultation bilaterally Cardio: COMMON NORMALS: regular rate and regular rhythm RATE: regular rate RHYTHM: regular rhythm GI: COMMON NORMALS: Soft to palpation, non-tender and no bruits AUSCULTATION: Yes normoactive bowel sounds PALPATION: Yes Soft to palpation Back/Pelvis: COMMON NORMALS: thoracic and lumbar spine normal to inspection Extremity: NARRATIVE EXTREMITY EXAM: Mild peripheral edema, bilateral varicosities Neuro: SENSORIUM/ORIENTATION: Yes alert Skin: COMMON NORMALS: turgor normal NARRATIVE SKIN EXAM: Sunburn GENERAL SKIN EXAM: turgor normal Course Vital Signs: Vital signs: Vital Signs Temperature 97.1 F L 12/26/21 00:27 Pulse Rate 90 12/26/21 00:27 Respiratory Rate 18 12/26/21 00:27 Blood Pressure 161/102 12/26/21 00:27 Pulse Oximetry 100 12/26/21 00:27 MDM - Extremity (Nontraumatic) Medical Decision Making 26-year-old male patient comes in today with complaints of swelling to bilateral lower extremity and leg pain. On exam patient does have some mild swelling to the lower extremities but does also have varicosities bilateral. Blood pressure was slightly elevated with a systolic of 161, abdomen soft nontender. Skin is warm and dry. Patient also has a sunburn. Differential diagnosis includes uncontrolled hypertension, idiopathic peripheral edema, varicose veins, heat edema. Suspect patient has some lower extremity pain and swelling due to his varicosities. His blood pressure is slightly elevated we will go ahead and start him on 12-1/2 mg of hydrochlorothiazide to help with the swelling and control his blood pressure better. Blood pressure did come down to 138 in the emergency department so more likely is just due to patient's bilateral legs varicosities. Laboratory values were unremarkable except for a bump in the AST and ALT's. This is probably secondary to patient's positive hepatitis C. Lab Data : 12/26/21 01:00 12/26/21 01:00 Laboratory Results WBC 10.0 10^3/uL (4.0-10.0) 12/26/21 01:00 RBC 4.91 10^6/uL (4.1-5.3) 12/26/21 01:00 Hgb 14.2 g/dL (11.7-16.6) 12/26/21 01:00 Hct 41.4 % (42.0-52.0) L 12/26/21 01:00 MCV 84.3 fl (80-94) 12/26/21 01:00 MCH 28.9 pg (28.0-34.0) 12/26/21 01:00 MCHC 34.3 g/dL (30.0-36.0) 12/26/21 01:00 RDW 12.6 % (12.1-15.1) 12/26/21 01:00 Plt Count 226 10^3/cmm (130-400) 12/26/21 01:00 MPV 9.6 fL (7.4-10.4) 12/26/21 01:00 Neut % (Auto) 42.7 % 12/26/21 01:00 Lymph % (Auto) 50.2 % 12/26/21 01:00 [place] % (Auto) 5.4 % 12/26/21 01:00 Eos % (Auto) 1.4 % 12/26/21 01:00 Baso % (Auto) 0.2 % 12/26/21 01:00 Neut # (Auto) 4.26 10^3/uL (1.8-7.7) 12/26/21 01:00 Lymph # (Auto) 5.0 10^3/uL (0.8-4.8) H 12/26/21 01:00 [place] # (Auto) 0.5 10^3/uL (0.2-0.9) 12/26/21 01:00 Eos # (Auto) 0.1 10^3/uL (0.0-0.8) 12/26/21 01:00 Baso # (Auto) 0.0 10^3/uL (0.0-0.1) 12/26/21 01:00 Nucleated RBC % (auto) 0 % 12/26/21 01:00 Nucleated RBCs # 0.0 /100WBC 12/26/21 01:00 Sodium 138 mmol/L (136-145) 12/26/21 01:00 Potassium 3.6 mmol/L (3.5-5.1) 12/26/21 01:00 Chloride 101 mmol/L (98-107) 12/26/21 01:00 Carbon Dioxide 25 mmol/L (22-29) 12/26/21 01:00 Anion Gap 15.6 (5-19) 12/26/21 01:00 BUN 17 mg/dL (6-20) 12/26/21 01:00 Creatinine 0.7 mg/dL (0.7-1.2) 12/26/21 01:00 GFR Calculation 135.3 mL/min (90-130) H 12/26/21 01:00 Glucose 103 mg/dL (65-115) 12/26/21 01:00 Calculated Osmolality 288 mOsm/kg (285-295) 12/26/21 01:00 Calcium 9.1 mg/dL (8.5-10.5) 12/26/21 01:00 Total Bilirubin 0.5 mg/dL (0.15-1.2) 12/26/21 01:00 AST 53 U/L (0-40) H 12/26/21 01:00 ALT 78 U/L (0-41) H 12/26/21 01:00 Alkaline Phosphatase 74 IU/L (40-130) 12/26/21 01:00 Total Protein 7.5 g/dL (6.6-8.7) 12/26/21 01:00 Albumin 4.2 g/dL (3.5-5.2) 12/26/21 01:00 Globulin 3.3 g/dL (1.3-4.6) 12/26/21 01:00 Discharge Plan Discharge Patient Disposition: Home Clinical Impression: Peripheral edema Condition: Stable Prescriptions: New hydrochlorothiazide 12.5 mg tablet 12.5 mg PO DAILY Qty: 14 0RF No Action methadone 40 mg tablet,soluble 80 mg PO DAILY 0RF clonidine HCl 0.1 mg tablet 0.1 mg PO Q8H Qty: 30 0RF promethazine 25 mg tablet 25 mg PO Q6H PRN (Reason: nausea and vomiting) Qty: 20 0RF Ativan 2 mg tablet 2 mg PO TID Qty: 30 0RF Discharge Orders: Discharge ED (Routine); Ordered 12/26/21 Ordered By: Lc Pate Referrals: Foster Olson MD [Primary Care Provider] - Discharge Diet: Usual diet Discharge Activity: Increase activity as tolerated Patient Instructions: Leg Edema (ED) Activity Restrictions/Additional Instructions: Healthy diet and activity. Try to avoid the heat of the day. Follow-up with primary care for further evaluation and treatment. Take blood pressure medication hydrochlorothiazide 12-1/2 mg a day. It will help control your blood pressure and help get rid of the excess fluid on your legs. Return to ER for chest pain, blood in vomit or stool, or increased shortness of breath. Coding Level of Care Code ED Set Up / Operator for Noam Malone
[2021-12-26] MEDS: tetanus-dipt-pertussis 0.5 mL SDV IM (01:06)
[2021-12-26 01:10] LABS: Basophils % 0.2 %; Eosinophils # 0.1 10^3/uL (0.0-0.8); Eosinophils % 1.4 %; Hematocrit 41.4 % (42.0-52.0); Hemoglobin 14.2 g/dL (11.7-16.6); Lymphocytes % 50.2 %; Mean Corpuscular HGB Conc 34.3 g/dL (30.0-36.0); Mean Corpuscular Hemoglobin 28.9 pg (28.0-34.0); Mean Corpuscular Volume 84.3 fl (80-94); Mean Platelet Volume 9.6 fL (7.4-10.4); Monocytes # 0.5 10^3/uL (0.2-0.9); Monocytes % 5.4 %; Neutrophils # 4.26 10^3/uL (1.8-7.7); Neutrophils % 42.7 %; Nucleated Red Blood Cells % 0 %; Platelet Count 226 10^3/cmm (130-400); Red Blood Count 4.91 10^6/uL (4.1-5.3); Red Cell Distribution Width 12.6 % (12.1-15.1)
[2021-12-26 01:30] LABS: Alanine Aminotransferase 78 U/L (0-41); Albumin Level 4.2 g/dL (3.5-5.2); Alkaline Phosphatase 74 IU/L (40-130); Anion Gap 15.6 (5-19); Aspartate Amino Transferase 53 U/L (0-40); Blood Urea Nitrogen 17 mg/dL (6-20); Calcium 9.1 mg/dL (8.5-10.5); Carbon Dioxide 25 mmol/L (22-29); Chloride 101 mmol/L (98-107); Globulin 3.3 g/dL (1.3-4.6); Glomerular Filtration Rate 135.3 mL/min (90-130); Glucose 103 mg/dL (65-115); Osmolality Calculated 288 mOsm/kg (285-295); Potassium 3.6 mmol/L (3.5-5.1); Sodium 138 mmol/L (136-145); Total Bilirubin 0.5 mg/dL (0.15-1.2); Total Protein 7.5 g/dL (6.6-8.7)
[2021-12-26 01:33] LABS: Slide Review Slide Review Perform
--- NOTE | 2021-12-27 09:36 | DCPLANNER ---
cocktail lounge manager had message to speak with patient about getting established with a primary care physician. cocktail lounge manager called phone number [phone] unable to speak with patient at this time, a voicemail was left for patient to return caseworker phone call.
== END 2021-12-26 02:10 | disposition home or self-care (01) ==
PROVIDERS: Emergency Provider Nurse Practitioner Family; PCP Family Medicine
DX: R60.9 Edema, unspecified (principal); B19.20 Unspecified viral hepatitis C without hepatic coma; Z23 Encounter for immunization
CPT/HCPCS: 80053; 85025; 90471; 90715; 99283

== ENCOUNTER 2022-06-07 20:48 | Emergency (ER) | payer MEDICAID, SELFPAY ==
[2022-06-07 20:56] VITALS: PULSE 64; RESP 18; TEMP 36.1; O2SAT 99; BMI 33.0
--- NOTE | 2022-06-07 22:00 | XRR_ITS ---
PROCEDURE INFORMATION: Exam: XR Chest Exam date and time: 06/07/2022 11:11 PM Age: 26 years old Clinical indication: Other: Leg swelling TECHNIQUE: Imaging protocol: Radiologic exam of the chest. Views: 1 view. COMPARISON: CR XR chest 1V portable [id number] 12/05/2020 4:05 AM FINDINGS: Lungs: Unremarkable. No consolidation. Pleural spaces: Unremarkable. No pleural effusion. No pneumothorax. Heart/Mediastinum: Unremarkable. No cardiomegaly. Bones/joints: Unremarkable. XR/XR chest 1V portable [id number] IMPRESSION: No acute findings.
--- NOTE | 2022-06-07 22:00 | USR_ITS ---
PROCEDURE INFORMATION: Exam: US Duplex Left Lower Extremity Veins, Limited Exam date and time: 06/07/2022 10:31 PM Age: 26 years old Clinical indication: Edema, localized; Lower extremity, left; Additional info: Swelling TECHNIQUE: Imaging protocol: Real-time Duplex ultrasound of the Left Lower Extremity with 2-D angel scale, color Doppler flow and spectral waveform analysis with image documentation. Limited exam focused on the left lower extremity veins. COMPARISON: CT abdomen pelvis w con* [id number] 08/05/2020 11:01 PM FINDINGS: Left deep veins: Unremarkable. The common femoral, femoral, proximal profunda femoral and popliteal veins are patent without thrombus. Normal Doppler waveforms. Normal compressibility and/or augmentation response. Left superficial veins: Unremarkable. Saphenofemoral junction is patent without thrombus. Soft tissues: Subcutaneous edema in the lower extremity. US/CV venous duplex [facility] [id number] IMPRESSION: No evidence of deep vein thrombosis.
[2022-06-07 22:41] LABS: Alanine Aminotransferase 76 U/L (0-41); Albumin Level 3.9 g/dL (3.5-5.2); Alkaline Phosphatase 79 U/L (40-130); Anion Gap 11.3 (5-19); Aspartate Amino Transferase 69 U/L (0-40); Blood Urea Nitrogen 13 mg/dL (6-20); Calcium 9.5 mg/dL (8.5-10.5); Carbon Dioxide 29 mmol/L (22-29); Chloride 101 mmol/L (98-107); Globulin 3.6 g/dL (1.3-4.6); Glomerular Filtration Rate 161.6 mL/min (90-130); Glucose 80 mg/dL (65-115); NT Pro B Type Natriuretic Pept 12 pg/mL (0-125); Osmolality Calculated 283 mOsm/kg (285-295); Potassium 4.3 mmol/L (3.5-5.1); Sodium 137 mmol/L (136-145); Total Bilirubin 0.8 mg/dL (0.15-1.2); Total Protein 7.5 g/dL (6.6-8.7)
[2022-06-07 22:52] LABS: Basophils % 0.2 %; Eosinophils # 0.2 10^3/uL (0.0-0.8); Eosinophils % 3.1 %; Hematocrit 45.2 % (42.0-52.0); Hemoglobin 14.7 g/dL (11.7-16.6); Lymphocytes # 2.3 10^3/uL (0.8-4.8); Lymphocytes % 42.6 %; Mean Corpuscular HGB Conc 32.5 g/dL (30.0-36.0); Mean Corpuscular Hemoglobin 28.8 pg (28.0-34.0); Mean Corpuscular Volume 88.5 fl (80-94); Mean Platelet Volume 9.9 fL (7.4-10.4); Monocytes # 0.3 10^3/uL (0.2-0.9); Monocytes % 5.4 %; Neutrophils # 2.63 10^3/uL (1.8-7.7); Neutrophils % 48.5 %; Nucleated Red Blood Cells % 0 %; Platelet Count 204 10^3/cmm (130-400); Red Blood Count 5.11 10^6/uL (4.1-5.3); Red Cell Distribution Width 13.2 % (12.1-15.1); White Blood Count 5.4 10^3/uL (4.0-10.0)
--- NOTE | 2022-06-07 22:54 | ED_ITS ---
HPI - Extremity Problem General: Chief complaint: Extremity Problem,Nontraumatic Stated complaint: Left Leg Swollen Time Seen by Provider: 06/07/22 21:52 Source: patient Mode of arrival: ambulatory Limitations: no limitations History of Present Illness: 26-year-old male who states he has had some swelli ng in his legs mainly in the lower states he gets this at times and it seems to come and go in the knee pain denies any fever denies any redness does have a history of methamphetamine abuse but denies injecting in his legs. Associated symptoms: Deny chest pain, fever(s) or rash Review of Systems Const: Denies: fever(s), chills, body aches or change in appetite Eyes: Denies: blurry vision or eye discomfort ENMT: Denies: throat pain or dental pain Card: Denies: chest pain Resp: Denies: dyspnea GI: Denies: abdominal pain, nausea, vomiting or diarrhea : Denies: dysuria Musc: Reports: extremity swelling Skin/Breast: Denies: rash Neuro: Denies: headache(s) Psych: Denies: depression Jude/Lymph: Denies: easy bruising All/Imm: Denies: urticaria PFSH ED PFSH: Medical History Groin abscess Leg fracture, left Migraine Surgical History Status post thoracostomy tube placement Social History Smoking and tobacco status: current every day smoker Alcohol intake: current Physical Exam Const: COMMON NORMALS: no acute distress, patient oriented x3 and healthy appearing HENMT: COMMON NORMALS: normocephalic and atraumatic HEAD & SCALP: normocephalic and atraumatic Eye: COMMON NORMALS: Equal, round and reactive pupils present and EOMs intact bilaterally PUPIL: Yes Equal, round and reactive pupils present Neck/C-Spine: COMMON NORMALS: full ROM and supple Chest: COMMONS NORMALS: normal inspection of the chest and normal palpation of entire chest wall Resp: COMMON NORMALS: normal respiratory effort, No retractions, No use of accessory muscles and clear to auscultation bilaterally AUSCULTATION: clear to auscultation bilaterally Cardio: COMMON NORMALS: regular rate, regular rhythm and No murmurs present (Cardio) RATE: regular rate RHYTHM: regular rhythm GI: COMMON NORMALS: Normal to inspection, nondistended, normoactive bowel sounds present, Soft to palpation, non-tender and no masses PALPATION: Yes Soft to palpation Extremity: COMMON NORMALS: full ROM NARRATIVE EXTREMITY EXAM: Slight swelling to left lower leg distal pulses intact. No redness Neuro: COMMON NORMALS: patient oriented x3, moves all extremities and no focal motor deficits Psych: COMMON NORMALS: mental status grossly normal, Normal thought process present and cooperative THOUGHT PROCESS: Normal thought process present Skin: COMMON NORMALS: no rashes or lesions noted and no wounds GENERAL SKIN EXAM: no rashes or lesions noted Course Vital Signs: Vital signs: Vital Signs Temperature 97 F L 06/07/22 20:56 Pulse Rate 64 06/07/22 20:56 Respiratory Rate 18 06/07/22 20:56 Pulse Oximetry 99 06/07/22 20:56 Oxygen Delivery Me thod 06/07/22 20:56 MDM - Extremity (Nontraumatic) Medical Decision Making Patient presents right leg swelling mainly in the left leg he is well-appearing here he has distal pulses intact no signs of cellulitis his blood work is normal BNP is normal ultrasound shows no DVT he stable for discharge at this time. Likely a dependent edema Lab Data : 06/07/22 22:05 06/07/22 22:05 Radiology Impressions Chest X-Ray 06/07/22 22:00 IMPRESSION: No acute findings. Laboratory Results WBC 5.4 10^3/uL (4.0-10.0) 06/07/22 22:05 RBC 5.11 10^6/uL (4.1-5.3) 06/07/22 22:05 Hgb 14.7 g/dL (11.7-16.6) 06/07/22 22:05 Hct 45.2 % (42.0-52.0) 06/07/22 22:05 MCV 88.5 fl (80-94) 06/07/22 22:05 MCH 28.8 pg (28.0-34.0) 06/07/22 22:05 MCHC 32.5 g/dL (30.0-36.0) 06/07/22 22:05 RDW 13.2 % (12.1-15.1) 06/07/22 22:05 Plt Count 204 10^3/cmm (130-400) 06/07/22 22:05 MPV 9.9 fL (7.4-10.4) 06/07/22 22:05 Neut % (Auto) 48.5 % 06/07/22 22:05 Lymph % (Auto) 42.6 % 06/07/22 22:05 Ferry % (Auto) 5.4 % 06/07/22 22:05 Eos % (Auto) 3.1 % 06/07/22 22:05 Baso % (Auto) 0.2 % 06/07/22 22:05 Neut # (Auto) 2.63 10^3/uL (1.8-7.7) 06/07/22 22:05 Lymph # (Auto) 2.3 10^3/uL (0.8-4.8) 06/07/22 22:05 Ferry # (Auto) 0.3 10^3/uL (0.2-0.9) 06/07/22 22:05 Eos # (Auto) 0.2 10^3/uL (0.0-0.8) 06/07/22 22:05 Baso # (Auto) 0.0 10^3/uL (0.0-0.1) 06/07/22 22:05 Nucleated RBC % (auto) 0 % 06/07/22 22:05 Nucleated RBCs # 0.0 /100WBC 06/07/22 22:05 Sodium 137 mmol/L (136-145) 06/07/22 22:05 Potassium 4.3 mmol/L (3.5-5.1) 06/07/22 22:05 Chloride 101 mmol/L (98-107) 06/07/22 22:05 Carbon Dioxide 29 mmol/L (22-29) 06/07/22 22:05 Anion Gap 11.3 (5-19) 06/07/22 22:05 BUN 13 mg/dL (6-20) 06/07/22 22:05 Creatinine 0.6 mg/dL (0.7-1.2) L 06/07/22 22:05 GFR Calculation 161.6 mL/min (90-130) H 06/07/22 22:05 Glucose 80 mg/dL (65-115) 06/07/22 22:05 Calculated Osmolality 283 mOsm/kg (285-295) L 06/07/22 22:05 Calcium 9.5 mg/dL (8.5-10.5) 06/07/22 22:05 Total Bilirubin 0.8 mg/dL (0.15-1.2) 06/07/22 22:05 AST 69 U/L (0-40) H 06/07/22 22:05 ALT 76 U/L (0-41) H 06/07/22 22:05 Alkaline Phosphatase 79 U/L (40-130) 06/07/22 22:05 NT-Pro-B Natriuret Pep 12 pg/mL (0-125) 06/07/22 22:05 Total Protein 7.5 g/dL (6.6-8.7) 06/07/22 22:05 Albumin 3.9 g/dL (3.5-5.2) 06/07/22 22:05 Globulin 3.6 g/dL (1.3-4.6) 06/07/22 22:05 Discharge Plan Discharge Patient Disposition: Home Clinical Impression: Leg swelling Condition: Stable Prescriptions: New ondansetron 4 mg tablet,disintegrating 4 mg PO Q6H PRN (Reason: nausea and vomiting) Qty: 14 0RF No Action methadone 40 mg tablet,soluble 80 mg PO DAILY clonidine HCl 0.1 mg tablet 0.1 mg PO Q8H Qty: 30 0RF promethazine 25 mg tablet 25 mg PO Q6H PRN (Reason: nausea and vomiting) Qty: 20 0RF Ativan 2 mg tablet 2 mg PO TID Qty: 30 0RF hydrochlorothiazide 12.5 mg tablet 12.5 mg PO DAILY Qty: 14 0RF Discharge Orders: Discharge ED (Routine); Ordered 06/07/22 Ordered By: Eva Du Referrals: Foster Olson MD [Primary Care Provider] - Discharge Diet: Advance as tolerated Discharge Activity: Resume usual activity Patient Instructions: Leg Edema (ED) Coding Level of Care Code ED Online Journalist for Margueriteg Kira
[2022-06-07] MEDS: ondansetron 4 MG Tablet PO (23:06)
== END 2022-06-07 23:17 | disposition home or self-care (01) ==
PROVIDERS: Emergency Provider Emergency Medicine; PCP Family Medicine
DX: M79.89 Other specified soft tissue disorders (principal); Z79.891 Long term (current) use of opiate analgesic; F17.210 Nicotine dependence, cigarettes, uncomplicated
CPT/HCPCS: 71045; 80053; 83880; 85025; 93971; 99285; Q0162